=== PATIENT | female | born 2000 | race Hispanic/Latino ===

== ENCOUNTER 2020-01-11 13:56 | Outpatient (CLI) | payer MEDICAID ==
--- NOTE | 2020-01-11 15:36 | ULT ---
PELVIC ULTRASOUND: HISTORY: Pelvic pain. FINDINGS: Rela-time imaging of the pelvis was obtained transabdominally as well as with an endovaginal probe. This shows a uterus measuring 6 cm in length. The endometrium is in the 5 mm range. Both the right and left ovaries show multiple small follicles. No free fluid. DOPPLER EVALUATION WITH SPECTRAL ANALYSIS: Normal flow is shown to both adnexa. IMPRESSION: Essentially unremarkable pelvic ultrasound. POS: [facility]
== END 2020-01-11 13:57 | disposition home or self-care (01) ==
LOC: BICULT 13:56
PROVIDERS: ATTEND Nurse Practitioner Women's Health
DX: R10.2 Pelvic and perineal pain (principal)
CPT/HCPCS: 76856

== ENCOUNTER 2020-03-05 21:38 | Observation (INO) | payer MEDICAID, SELFPAY ==
[2020-03-05 22:21] LABS: #Basophils 0.1 thou/uL (0.0-0.2); #Eosinphils 0.2 thou/uL (0.0-0.7); #Lymphocytes 2.3 thou/uL (1.20-3.40); #Monocytes 0.5 thou/uL (0.11-0.59); %Eosinophils 2.6 % (0.0-10.0); %Lymphocytes 33.1 % (28.0-48.0); %Neutrophils 56.3 % (31.0-61.0); Mean Corpuscular HGB CONC 34.7 g/dL (32.0-36.0); Mean Corpuscular Hemoglobin 30.8 pg (25.0-35.0); Mean Corpuscular Volume 88.6 fL (78.0-98.0); Mean Platelet Volume 6.9 fL (7.4-10.4); Platelet Count 279 thou/uL (130-400); RBC Distribution Width 11.7 % (11.5-14.5); Red Blood Cell (RBC) Count 5.19 mill/uL (4.00-5.20)
[2020-03-05] MEDS ORDERED: Activated Charcoal/Sorbitol 25 GM/120 ML TUBE ONE ×2 (22:22→22:26)
[2020-03-05 22:42] LABS: ALT (SGPT) 47 U/L (8-55); AST (SGOT) 34 U/L (5-34); Acetaminophen Less than 6.0 mcg/mL (10.0-30.0); Albumin 4.8 g/dL (3.5-5.0); Alcohol Less than 10 mg/dL (Less than 10); Alkaline Phosphatase 95 U/L (40-100); Anion Gap 15 mmol/L (10-20); BUN (Urea Nitrogen) 5 mg/dL (7.0-18.7); Bilirubin, Total 0.5 mg/dL (0.2-1.2); Calc. Creatinine Clearance 0 mL/min (70-130); Calcium 9.9 mg/dL (7.8-10.44); Carbon Dioxide 23 mmol/L (22-29); Chloride 103 mmol/L (98-107); Estimated GFR-MDRD Greater than 90; Globulin 3.2 g/dL (2.4-3.5); Glucose 78 mg/dL (70-105); Potassium 3.4 mmol/L (3.5-5.1); Salicylate Less than 8.0 mg/dL (15.0-30.0); Sodium 138 mmol/L (136-145)
[2020-03-05 22:54] LABS: Bilirubin Negative (Negative); Blood, Urine Negative (Negative); Clarity Clear (Clear); Glucose, Urine (Dipstick) Normal (Negative); Leukocyte Negative Leu/uL (Negative); Nitrite Negative (Negative); Protein, Urine (Dipstick) Negative (Neg-Trace); Urobilinogen Normal mg/dL (Less than 2)
[2020-03-05 22:55] LABS: Pregnancy Test - Urine (BHCG) Negative (Negative); Pregu Control Background? CLEAR/WHITE (CLR/WHITE); Pregu Control Bar Appear? YES (CONTROL BAR); Specific Gravity 1.004 (1.002-1.036)
[2020-03-05 23:10] LABS: Amphetamine Not Detected (NotDetected); Barbiturates Screen Not Detected (NotDetected); Benzodiazepine Screen Not Detected (NotDetected); Cocaine Metabolite Screen Not Detected (NotDetected); Medtox Control Line Valid? VALID (VALID); Medtox Reader # READER 4; Methadone Not Detected (NotDetected); Methamphetamine Not Detected (NotDetected); Opiate Screen Not Detected (NotDetected); Oxycodone Screen Not Detected (NotDetected); Phencyclidine (PCP) Not Detected (NotDetected); THC/Cannabinoid Screen Not Detected (NotDetected); Tricyclic Screen Not Detected (NotDetected)
--- NOTE | 2020-03-06 01:08 | PDOC.FPRHP ---
Addendum entered and electronically signed by Jaswinder Quinteros DO 03/06/20 08:57 : Allergies: NKDA Medications: Effexor 37.5 mg daily Latuda 40 mg daily Hydroxyzine 100mg daily Original Note: - History of Present Illness Chief Complaint: Overdose History of Present Illness: 19 year old female presented to the emergency department after an intentional ingestion of Benadryl. The patient stated that around 10 p.m. tonight she took approximately 30 pills of 25 mg Benadryl. She stated that she did this because she read online that if she took a large quantity of Benadryl she could achieve hallucinations. Soon after taking the medication patient started to develop dizziness which concerned her and prompted her to seek evaluation in the emergency department. Patient adamantly denies that she did this in an effort to harm herself or in an attempt to enter life. Patient does have a past medical history of bipolar depression, generalized anxiety, and PTSD for which she has followed by [facility]. She last saw them in February and had her medications changed. Patient denies feeling like her Mental Health is poorly managed. Patient resides with her grandparents. Currently the patient's notes some mild continued dizziness, palpitations, and a dry mouth. Pt denies ingestion of any other medications or drugs tonight. ED Course: Poison control was contacted - recommended activated charcoal. Pt received 50g of activated charcoal and 2L NS. Found to have sustained sinus tachycardia. - Allergies/Adverse Reactions Allergies Allergy/AdvReac Type Severity Reaction Status Date / Time No Known Allergies Allergy Unverified 03/06/20 02:39 - Home Medications Medication Instructions Recorded Confirmed Type Lurasidone HCl [Latuda] 40 mg PO DAILY 03/06/20 03/06/20 History Venlafaxine HCl 37.5 mg PO BID 03/06/20 03/06/20 History hydrOXYzine HCl [Hydroxyzine HCl] 100 mg PO DAILY 03/06/20 03/06/20 History - History PMHx: Bipolar II, GRABIEL, PTSD PSHx: None FHx: HTN, HLD, Bipolar, Depression Social: Denies any tobacco use, occasionally drinks alcohol but none recently, smoke marijuana every few days - Review of Systems General: denies: fever/chills, weight/appetite/sleep changes Eyes: denies: eye pain, vision changes ENT: reports: other (dry mouth). denies: nasal congestion, rhinorrhea Respiratory: denies: cough, shortness of breath Cardiovascular: reports: palpitation. denies: chest pain Gastrointestinal: denies: nausea, vomiting, diarrhea Genitourinary: denies: dysuria, polyuria Skin: denies: rashes, lesions Musculoskeletal: denies: pain, tenderness Neurological: reports: other (dizziness). denies: numbness, syncope, seizure, weakness Psychological: reports: anxiety, depression - Vital signs BP: 133/87, Pulse: 141, Resp: 18, Temp: 99.0 (Oral), Pain: 0, O2 sat: 98 on ( Room Air), Wt: 71kg - Physical Exam Constitutional: NAD, awake, alert and oriented, well developed HEENT: normocephalic and atraumatic, PERRLA, EOMI -HEENT: Tongue black from charcoal, mildly dry MM, pupils slightly dilated Neck: supple, FROM Heart: normal S1/S2, no murmurs/rubs/gallops, no edema -Heart: Tachycardic Lungs: CTAB, no respiratory distress Abdomen: soft, non-tender, bowel sounds present Musculoskeletal: normal structure, normal tone Neurological: no focal deficit, CN II-XII intact, normal sensation Skin: no rash/lesions, good turgor Heme/Lymphatic: no unusual bruising or bleeding, no purpura, no petechia Psychiatric: normal mood and affect, good judgment and insight, intact recent and remote memory -Psychiatric: Denies any SI/HI FMR H&P: Results - Labs Result Diagrams: 03/06/20 04:26 03/06/20 13:38 Lab results: WBC 7.0 thou/uL (4.8-10.8) 03/05/20 22:05 Hgb 16.0 g/dL (12.0-16.0) 03/05/20 22:05 Hct 46.0 % (36.0-47.0) 03/05/20 22:05 MCV 88.6 fL (78.0-98.0) 03/05/20 22:05 Plt Count 279 thou/uL (130-400) 03/05/20 22:05 Neutrophils % 56.3 % (31.0-61.0) 03/05/20 22:05 Sodium 138 mmol/L (136-145) 03/05/20 22:05 Potassium 3.4 mmol/L (3.5-5.1) L 03/05/20 22:05 Chloride 103 mmol/L (98-107) 03/05/20 22:05 Carbon Dioxide 23 mmol/L (22-29) 03/05/20 22:05 BUN 5 mg/dL (7.0-18.7) L 03/05/20 22:05 Creatinine 0.75 mg/dL (0.6-1.1) 03/05/20 22:05 Glucose 78 mg/dL (70-105) 03/05/20 22:05 Calcium 9.9 mg/dL (7.8-10.44) 03/05/20 22:05 Total Bilirubin 0.5 mg/dL (0.2-1.2) 03/05/20 22:05 AST 34 U/L (5-34) 03/05/20 22:05 ALT 47 U/L (8-55) 03/05/20 22:05 Alkaline Phosphatase 95 U/L (40-100) 03/05/20 22:05 Serum Total Protein 8.0 g/dL (6.0-8.3) 03/05/20 22:05 Albumin 4.8 g/dL (3.5-5.0) 03/05/20 22:05 Urine Ketones Negative mg/dL (Negative) 03/05/20 22:15 Urine Blood Negative (Negative) 03/05/20 22:15 Urine Nitrite Negative (Negative) 03/05/20 22:15 Ur Leukocyte Esterase Negative Swati/uL (Negative) 03/05/20 22:15 - EKG Interpretation EK lead EKG: Sinus tachycardia at 147. No ST elevations or depressions. QT/QTc 348/544, suspect this is due to the tachycardia and overlapping T and P wave FMR H&P: A/P - Problem List (1) Diphenhydramine overdose Current Visit: Yes Status: Acute Code(s): T45.0X1A - POISONING BY ANTIALLERG /ANTIEMETIC, ACCIDENTAL, INIT (2) PTSD (post-traumatic stress disorder) Current Visit: Yes Status: Acute Code(s): F43.10 - POST-TRAUMATIC STRESS DISORDER, UNSPECIFIED (3) Bipolar II disorder, most recent episode major depressive Current Visit: Yes Status: Acute Code(s): F31.81 - BIPOLAR II DISORDER (4) Generalized anxiety disorder Current Visit: Yes Status: Acute Code(s): F41.1 - GENERALIZED ANXIETY DISORDER (5) Sinus tachycardia Current Visit: Yes Status: Acute Code(s): R00.0 - TACHYCARDIA, UNSPECIFIED - Plan Benedryl Overdose - Determined not to be self harm behavior, Pt A&Ox4, No sign of AMS - Poison control contacted, following recs - S/p activated charcoal - Will continue to monitor mental status and alertness - Trend renal function Sinus Tachycardia - Persistent sinus tachycardia, likely related to anti-cholinergic affects - LR @ 125 - Tele monitoring - Monitor until improvement vs BB assisted rate control Chronic Medical Problems: PTSD Bipolar GRABIEL - Hold home meds for now due to possible interactions and pt having charcoal on board VTE: SCD IVF: LR @ 125 Diet: Regular Code: Full Dispo: Admit to tele obs for cardiac monitoring. ELOS < 48hr PCP: No doc, followed by [facility] FMR H&P: Upper Level - Pertinent history I have reviewed the above HPI and made edits above as needed. Agree with above. See above for details. Pt states took around 30 benadryll. Reports having some dry mouth and feeling fast heartbeat. pt denies any other sx's at this time. Pt was A&Ox4. Denies any SI, HI. Denies any visual or auditory hallucinations. Pt reports stable on current psych meds. - Pertinent findings General: Resting in Bed. A&Ox4. No acute distress Cardio: Sinus Tachy, no murmurs or gallops Resp: CTA-B, no wheezes or crackles Abdomen: NTTP, no masses or hernias. Ext: Moves all ext. - Plan Date/Time: 03/06/20 0108 [place], PGY3, have evaluated this patient and agree with findings/ plan as outlined by product management intern resident. Pertinent changes/additions are listed here. I have made edits to the above plan as needed. See above for detailed plan. At this time pt will be admitted to tele obs to monitor HR. Pt tachycardic from anticholinergic overdose. Overall pt stable. Will hold psych meds at this time. Pt denies SI or HI. Do not think needs futher psych eval once pt is stable. Can consult [facility] if concerns arise. Addendum - Attending - Attending Attestation Date/Time: 03/06/20 1213 I personally evaluated the patient and discussed the management with Dr. Quinteros/ Joel. I agree with the History, Examination, Assessment and Plan documented above with any addition or exceptions noted below. Repeat EKG today shows improving but prolonged QTc at 503ms. Repeat BMP today to monitor renal function. Monitor UOP. obs tonight and likely d/c tomorrow. will f/u with poison control for additional recommendations.
[2020-03-06 02:36] VITALS: BMI 32.1
[2020-03-06] MEDS ORDERED: Calcium Carbonate 500 MG ChewTAB PO PRN (02:39)
[2020-03-06] MEDS ORDERED: Acetaminophen 325 MG TAB PO PRN (02:39)
[2020-03-06] MEDS ORDERED: Lactated Ringer's 1,000 ML IV SCH (02:39)
[2020-03-06 04:40] LABS: #Basophils 0.1 thou/uL (0.0-0.2); #Eosinphils 0.1 thou/uL (0.0-0.7); #Lymphocytes 3.2 thou/uL (1.20-3.40); #Monocytes 0.5 thou/uL (0.11-0.59); #Neutrophils 4.6 thou/uL (1.40-6.50); %Basophils 1.2 % (0.0-1.0); %Eosinophils 0.8 % (0.0-10.0); %Lymphocytes 37.5 % (28.0-48.0); %Monocytes 6.1 % (0.0-4.0); %Neutrophils 54.3 % (31.0-61.0); Mean Corpuscular HGB CONC 35.3 g/dL (32.0-36.0); Mean Corpuscular Hemoglobin 31.4 pg (25.0-35.0); Mean Platelet Volume 6.9 fL (7.4-10.4); Platelet Count 279 thou/uL (130-400); RBC Distribution Width 11.6 % (11.5-14.5); Red Blood Cell (RBC) Count 4.79 mill/uL (4.00-5.20); White Blood Cell (WBC) Count 8.4 thou/uL (4.8-10.8)
[2020-03-06 05:02] LABS: ALT (SGPT) 46 U/L (8-55); AST (SGOT) 33 U/L (5-34); Albumin 4.5 g/dL (3.5-5.0); Alkaline Phosphatase 86 U/L (40-100); Anion Gap 15 mmol/L (10-20); BUN (Urea Nitrogen) Less than 4 mg/dL (7.0-18.7); Bilirubin, Total 0.5 mg/dL (0.2-1.2); Calc. Creatinine Clearance 112 mL/min (70-130); Calcium 9.5 mg/dL (7.8-10.44); Carbon Dioxide 21 mmol/L (22-29); Chloride 107 mmol/L (98-107); Estimated GFR-MDRD 79; Globulin 2.5 g/dL (2.4-3.5); Glucose 92 mg/dL (70-105); Potassium 4.2 mmol/L (3.5-5.1); Sodium 139 mmol/L (136-145)
[2020-03-06 11:48] VITALS: BP 107/59; TEMP 98.4
[2020-03-06 14:14] LABS: Anion Gap 13 mmol/L (10-20); BUN (Urea Nitrogen) 5 mg/dL (7.0-18.7); Calc. Creatinine Clearance 131 mL/min (70-130); Carbon Dioxide 24 mmol/L (22-29); Chloride 105 mmol/L (98-107); Estimated GFR-MDRD Greater than 90; Glucose 100 mg/dL (70-105); Potassium 3.6 mmol/L (3.5-5.1); Sodium 138 mmol/L (136-145)
--- NOTE | 2020-03-06 17:42 | EKG ---
Test Reason : Blood Pressure : / mmHG Vent. Rate : 101 BPM Atrial Rate : 101 BPM P-R Int : 156 ms QRS Dur : 092 ms QT Int : 388 ms P-R-T Axes : 049 099 033 degrees QTc Int : 503 ms Sinus tachycardia Rightward axis Borderline ECG When compared with ECG of 05-MAR-2020 21:57, (Unconfirmed) QRS axis Shifted left Confirmed by DR. Sugar DURHAM ([id number]) on 03/06/2020 5:41:25 PM Referred By: SAMREEN Confirmed By:DR. Sugar DURHAM
--- NOTE | 2020-03-06 22:19 | SS ---
DATE OF ADMISSION: 03/06/2020 DATE OF DISCHARGE: 03/06/2020 RESIDENT: Hayley Hansen DO ADMITTING & DISCHARGE ATTENDING: Carlos Melton MD CHIEF COMPLAINT: Benadryl overdose, dizziness. HISTORY OF PRESENT ILLNESS: Patient is a 19-year-old female, who presented to the emergency department after an intentional ingestion of Benadryl tablets. The patient stated that around 10 p.m. on March 05, she took approximately 30 pills of 25 mg Benadryl. She stated that she did this because she read online that if she took a large quantity of Benadryl, she could achieve hallucinations. Soon after taking the medication, the patient started to develop dizziness, which concerned her and prompted her to seek evaluation in the emergency department. Patient adamantly denies that she did this in an effort to harm herself or an attempt to end her life. Patient does have a past medical history of bipolar depression, generalized anxiety, and PTSD, for which she has been followed by [facility]. She last saw them in February and had her medications changed. Patient denies feeling like her mental health is poorly managed. Patient resides with her grandparents. Currently, the patient notes some mild continued dizziness, palpitations, and a dry mouth. Patient denies ingestion of any other medications or drugs. In the emergency room, Poison Control was contacted and they recommended activated charcoal. The patient received 50 g of activated charcoal and 2 L of normal saline. The patient was found to have sustained sinus tachycardia and was subsequently admitted to observation on the medical unit. PAST MEDICAL HISTORY: Bipolar II, generalized anxiety, and PTSD. PAST SURGICAL HISTORY: None. FAMILY HISTORY: Hypertension, hyperlipidemia, bipolar, and depression. SOCIAL HISTORY: Denies any tobacco use, occasionally drinks alcohol but none recently, smokes marijuana every few days. ADMISSION MEDICATIONS: Charcoal activated sorbitol 25 g x2 doses. REVIEW OF SYSTEMS: GENERAL: Denies fever, chills, weight changes, appetite changes, or sleep changes. EYES: Denies eye pain or vision changes. ENT: Reports dry mouth, denies nasal congestion or rhinorrhea. RESPIRATORY: Denies cough or shortness of breath. CARDIOVASCULAR: Reports palpitations, denies chest pain. GASTROINTESTINAL: Denies nausea, vomiting, or diarrhea. GENITOURINARY: Denies dysuria or polyuria. SKIN: Denies rashes or lesions. MUSCULOSKELETAL: Denies pain or tenderness. NEUROLOGIC: Reports dizziness, denies numbness, syncope, seizure, or weakness. PSYCHOLOGIC: Reports anxiety and depression. PHYSICAL EXAMINATION: VITAL SIGNS: Blood pressure 133/87, pulse 141, respirations 18, temperature 99 Fahrenheit, pain zero, and O2 saturation 98% on room air. Weight 71 kg. CONSTITUTIONAL: No acute distress, awake, alert, and oriented, well developed. HEENT: Normocephalic and atraumatic, PERRLA, EOMI, tongue black from charcoal, mildly dry mucous membranes, pupils slightly dilated. NECK: Supple, full range of motion. HEART: Tachycardic, normal S1, S2, no murmurs, rubs, or gallops, no edema. LUNGS: Clear to auscultation bilaterally, no respiratory distress. ABDOMEN: Soft, nontender, bowel sounds present. MUSCULOSKELETAL: Normal structure and normal tone. NEUROLOGIC: No focal deficits, cranial nerves 2 through 12 intact, normal sensation. SKIN: No rash or lesions, good turgor. HEME/LYMPHATIC: No unusual bruising or bleeding, no purpura, no petechiae. PSYCHIATRIC: Normal mood and affect, good judgment and insight, intact recent and remote memory, denies any suicidal or homicidal ideations. HISTORY OF PRESENT ILLNESS/HOSPITAL COURSE: Patient was admitted to observation on the medical unit for further evaluation. She had a consistent story that the Benadryl was due to her wanting to "get high" and was determined not to be from self-harm intentions. This story was consistent among nursing staff, her sitter , and care team. Patient was given IV fluids and was placed on telemetry monitoring. Throughout the morning, her heart rate trended down eventually into the 90s. Lab work initially showed a creatinine of 0.75, which trended up to 0.91, but then trended down upon repeat several hours later to 0.78. Patient overall was clinically improving and was deemed safe for discharge back to home later in the afternoon on March 06, 2020. Of note, the patient's EKG showed a prolonged QT of 348 and QTc of 544. She will need a repeat EKG in 1 week to reassess. DISCHARGE DIAGNOSES: 1. Benadryl overdose. 2. Sinus tachycardia. 3. Posttraumatic stress disorder. 4. Bipolar II. 5. Generalized anxiety disorder. DISCHARGE MEDICATIONS: 1. Hydroxyzine 100 mg p.o. daily. 2. Venlafaxine 37.5 mg p.o. b.i.d. 3. Lurasidone HCl 40 mg p.o. daily. DISPOSITION: Stable. DISCHARGE INSTRUCTIONS: 1. Location: Home. 2. Diet: Regular. 3. Activity: As tolerated. 4. Follow up with PCP in 3 to 5 days for hospital followup. 5. Will need repeat EKG in approximately 1 week due to prolonged QTc seen in this hospitalization. Job ID: [id number] MTDD
--- NOTE | 2020-03-09 14:08 | EKG ---
Test Reason : Blood Pressure : / mmHG Vent. Rate : 147 BPM Atrial Rate : 147 BPM P-R Int : 130 ms QRS Dur : 084 ms QT Int : 348 ms P-R-T Axes : 043 129 016 degrees QTc Int : 544 ms Sinus tachycardia Right axis deviation Abnormal ECG Confirmed by PARISH TRINIDAD [id number]), rewrite editor LUCIO BOSCH ([id number]) on 03/09/2020 2:07:52 PM Referred By: Confirmed By:PARISH TRINIDAD
== END 2020-03-06 17:35 | disposition home or self-care (01) ==
LOC: ERS 21:38 → 2NO 03-06 01:18
PROVIDERS: ADMIT Internal Medicine; ATTEND Internal Medicine
DX: T45.0X2A Poisoning by antiallergic and antiemetic drugs, intentional self-harm, initial encounter (principal); R00.0 Tachycardia, unspecified; F43.10 Post-traumatic stress disorder, unspecified; F31.81 Bipolar II disorder; F41.1 Generalized anxiety disorder; F12.10 Cannabis abuse, uncomplicated; Z79.899 Other long term (current) drug therapy
CPT/HCPCS: 36415; 80053; 80306; 80307; 81003; 81025; 84443; 84484; 85025; 93005; 93010; 94760; 96360; 96361; G0378

== ENCOUNTER 2020-07-29 09:20 | Emergency (ER) | payer SELFPAY ==
[2020-07-29 11:02] LABS: Bilirubin Small (Negative); Blood, Urine Trace (Negative); Glucose, Urine (Dipstick) Negative (Negative); Ketone, Urine Trace mg/dL (Negative); Leukocyte Negative (Negative); Nitrite Negative (Negative); Protein, Urine (Dipstick) 30 mg/dL (Neg-Trace)
[2020-07-29 11:03] LABS: #Basophils 0.1 thou/uL (0.0-0.2); #Eosinphils 0.2 thou/uL (0.0-0.7); #Lymphocytes 2.7 thou/uL (1.20-3.40); #Monocytes 0.6 thou/uL (0.11-0.59); #Neutrophils 5.2 thou/uL (1.40-6.50); %Eosinophils 2.3 % (0.0-10.0); %Lymphocytes 30.6 % (28.0-48.0); %Monocytes 6.5 % (0.0-4.0); %Neutrophils 59.7 % (31.0-61.0); Hemoglobin 14.3 g/dL (12.0-16.0); Mean Corpuscular HGB CONC 34.6 g/dL (32.0-36.0); Mean Corpuscular Volume 89.4 fL (78.0-98.0); Mean Platelet Volume 7.3 fL (7.4-10.4); Platelet Count 272 thou/uL (130-400); RBC Distribution Width 11.7 % (11.5-14.5); Red Blood Cell (RBC) Count 4.62 mill/uL (4.00-5.20); White Blood Cell (WBC) Count 8.7 thou/uL (4.8-10.8)
[2020-07-29 11:07] LABS: Clarity Clear (Clear)
[2020-07-29 11:08] LABS: Bacteria/HPF 1+ HPF (None Seen); RBC/HPF 0-3 HPF (0-3); WBC/HPF 0-3 HPF (0-3)
[2020-07-29] MEDS ORDERED: Promethazine HCl 25 MG/ML VIAL ONE (11:15)
[2020-07-29] MEDS ORDERED: Morphine 4 MG/ML VIAL ONE (11:15)
[2020-07-29 11:20] LABS: BHCG - Serum Negative (NEGATIVE); Pregs Control Background? CLEAR/WHITE (CLR/WHITE); Pregs Control Bar Appear? YES (CONTROL BAR)
[2020-07-29 11:29] LABS: ALT (SGPT) 27 U/L (8-55); AST (SGOT) 19 U/L (5-34); Albumin 4.4 g/dL (3.5-5.0); Alkaline Phosphatase 69 U/L (40-100); Anion Gap 14 mmol/L (10-20); BUN (Urea Nitrogen) 9 mg/dL (7.0-18.7); Bilirubin, Total 0.4 mg/dL (0.2-1.2); Calc. Creatinine Clearance 0 mL/min (70-130); Calcium 8.9 mg/dL (7.8-10.44); Carbon Dioxide 25 mmol/L (22-29); Chloride 105 mmol/L (98-107); Estimated GFR-MDRD Greater than 90; Globulin 2.7 g/dL (2.4-3.5); Glucose 115 mg/dL (70-105); Potassium 3.6 mmol/L (3.5-5.1); Protein, Total 7.1 g/dL (6.0-8.3); Sodium 140 mmol/L (136-145)
--- NOTE | 2020-07-29 12:17 | RAD ---
AP pelvis one view HISTORY: Pelvic pain. Unusual feeling of IUD. FINDINGS: No acute osseous abnormalities are demonstrated. Phleboliths project over the left lower pe lvis. Obliquely oriented linear metallic density projecting over the coccyx and uterus has the appearance o f an IUD that is oriented oblique sagittally rather than coronally as usually seen. Correlation with pelvic sonogram may be helpful if clinically appropriate.
[2020-07-29] MEDS ORDERED: Ketorolac Tromethamine 30 MG/ML VIAL ONE (13:07)
== END 2020-07-29 14:01 | disposition home or self-care (01) ==
LOC: ERS 09:20
DX: R10.2 Pelvic and perineal pain (principal); R11.2 Nausea with vomiting, unspecified; F41.9 Anxiety disorder, unspecified; F31.9 Bipolar disorder, unspecified; Z79.899 Other long term (current) drug therapy
CPT/HCPCS: 36415; 72170; 80053; 81003; 81015; 84703; 85025; 87086; 96361; 96374; 96375; J1885; J2270; J2550

== ENCOUNTER 2021-06-19 23:17 | Emergency (ER) | payer MEDICAID, SELFPAY ==
[2021-06-20 00:01] LABS: Bilirubin Negative (Negative); Blood, Urine Negative (Negative); Clarity Clear (Clear); Glucose, Urine (Dipstick) Normal (Negative); Ketone, Urine Negative (Negative); Leukocyte Negative Leu/uL (Negative); Nitrite Negative (Negative); Protein, Urine (Dipstick) 10 mg/dL (Neg-Trace); Urobilinogen Normal mg/dL (Less than 2); pH, Urine 6.5 (5.0-9.0)
[2021-06-20 00:07] LABS: Pregnancy Test - Urine (BHCG) Negative (Negative); Pregu Control Background? CLEAR/WHITE (CLR/WHITE); Pregu Control Bar Appear? YES (CONTROL BAR)
[2021-06-20 01:09] LABS: #Basophils 0.1 thou/uL (0.0-0.2); #Eosinphils 0.1 thou/uL (0.0-0.7); #Lymphocytes 3.7 thou/uL (1.20-3.40); #Monocytes 0.5 thou/uL (0.11-0.59); #Neutrophils 4.2 thou/uL (1.40-6.50); %Basophils 0.8 % (0.0-1.0); %Eosinophils 1.3 % (0.0-10.0); %Lymphocytes 42.9 % (21.0-51.0); %Monocytes 5.9 % (0.0-10.0); %Neutrophils 49.1 % (42.0-75.0); Hemoglobin 14.4 g/dL (12.0-16.0); Mean Corpuscular HGB CONC 33.9 g/dL (32.0-36.0); Mean Corpuscular Hemoglobin 32.1 pg (27.0-31.0); Mean Corpuscular Volume 94.7 fL (78.0-98.0); Platelet Count 273 thou/uL (130-400); RBC Distribution Width 11.4 % (11.5-14.5); Red Blood Cell (RBC) Count 4.49 mill/uL (4.20-5.40); White Blood Cell (WBC) Count 8.5 thou/uL (4.8-10.8)
[2021-06-20] MEDS ORDERED: Ondansetron PF 4 MG/2 ML Vial ONE (01:12)
[2021-06-20] MEDS ORDERED: Morphine 4 MG/ML VIAL ONE (01:12)
[2021-06-20 01:23] LABS: ALT (SGPT) 23 U/L (8-55); AST (SGOT) 23 U/L (5-34); Albumin 4.4 g/dL (3.5-5.0); Alkaline Phosphatase 48 U/L (40-110); Anion Gap 13 mmol/L (10-20); BUN (Urea Nitrogen) 9 mg/dL (7.0-18.7); Bilirubin, Total 0.5 mg/dL (0.2-1.2); Calc. Creatinine Clearance 0 mL/min (70-130); Calcium 9.8 mg/dL (7.8-10.44); Carbon Dioxide 22 mmol/L (22-29); Chloride 105 mmol/L (98-107); Globulin 3.3 g/dL (2.4-3.5); Glucose 84 mg/dL (70-105); Lipase 29 U/L (8-78); Potassium 4.1 mmol/L (3.5-5.1); Protein, Total 7.7 g/dL (6.0-8.3); Sodium 136 mmol/L (136-145)
[2021-06-20] MEDS ORDERED: Iopamidol-370 76% 500 ML 1 ML ONE (14:32)
== END 2021-06-20 06:21 | disposition home or self-care (01) ==
LOC: ERS 23:17
DX: I88.0 Nonspecific mesenteric lymphadenitis (principal); R10.31 Right lower quadrant pain; R11.2 Nausea with vomiting, unspecified
CPT/HCPCS: 36415; 74177; 76856; 80053; 81003; 81025; 83690; 85025; 96374; 96375; J2270; J2405; Q9967